=== PATIENT | female | born 1955 | race Caucasian/White ===

== ENCOUNTER 2017-05-29 06:03 | Day surgery (SDC) | payer MEDICAID ==
[~2017-05-29] VITALS: Ht 157.5 cm; Wt 95.7 kg
[~2017-05-29 06:03] MED LIST: ATOR40TA70 PO; GLIP10TA10 PO; LISI-604 PO; METF10002 PO; METH-24 PO; OMEP20TA80 PO; PIOG15TA6 PO; SODIUM CHLORIDE 0.9% 1,000 ML IV SCH
[2017-05-29 07:34] LABS: UCG SCREEN NEGATIVE
[2017-05-29] MEDS ORDERED: IBUP-1509 PO (07:55)
[2017-05-29] MEDS ORDERED: LIDOCAINE HCL 1% 20ML VIAL (Pyxis) INJ ONE (08:21)
[2017-05-29] MEDS ORDERED: PROPOFOL 200MG/20ML VIAL IV ONE (08:21)
[2017-05-29] MEDS ORDERED: ONDANSETRON HCL 4MG/2ML VIAL IV PRN (09:00)
[2017-05-29] MEDS: HYDROMORPHONE HCL/PF 2MG/ML CPJ IV PRN ×2 (10:12→16:11)
[2017-05-29 16:11] VITALS: BP 130/59
== END 2017-05-29 11:15 | disposition home or self-care (01) ==
LOC: OR 06:03
PROVIDERS: ATTEND Obstetrics & Gynecology
DX: N95.0 Postmenopausal bleeding (principal); E11.9 Type 2 diabetes mellitus without complications; I10 Essential (primary) hypertension; N88.2 Stricture and stenosis of cervix uteri; E66.01 Morbid (severe) obesity due to excess calories; E78.5 Hyperlipidemia, unspecified
CPT/HCPCS: 58120; 81025; 82962; 88305; 93005; J1170; J3490; J7030; J2704

== ENCOUNTER 2018-09-17 06:04 | Day surgery (SDC) | payer MEDICAID ==
[~2018-09-17] VITALS: Ht 157.5 cm; Wt 95.7 kg
[~2018-09-17 06:04] MED LIST changes: +IBUP-2028 PO; +METF-416 PO; -METF10002 PO; -METH-24 PO; +METH-375 PO; +OMEP20TA2 PO; -OMEP20TA80 PO; -SODIUM CHLORIDE 0.9% 1,000 ML IV SCH
[2018-09-17] MEDS ORDERED: FENTANYL CITRATE/PF 50MCG/ML 2ML VIAL ONE (09:27)
[2018-09-17] MEDS ORDERED: MIDAZOLAM HCL 2 MG/2 ML VIAL ONE (09:27)
[2018-09-17] MEDS ORDERED: PROPOFOL 200MG/20ML VIAL IV ONE (09:28)
[2018-09-17] MEDS ORDERED: LIDOCAINE HCL 1% 20ML VIAL (Pyxis) INJ ONE (09:28)
[2018-09-17] MEDS ORDERED: ONDANSETRON HCL 4MG/2ML INJ ONE (09:28)
[2018-09-17] MEDS ORDERED: METOCLOPRAMIDE HCL 10MG/2ML VIAL ONE (09:28)
[2018-09-17] MEDS ORDERED: SILVER NITRATE APPLICATOR STICK TOP SCH (09:45)
[2018-09-17] MEDS ORDERED: CEFAZOLIN SODIUM 1000MG/VIAL ONE (10:02)
[2018-09-17] MEDS ORDERED: ONDANSETRON HCL 4MG/2ML INJ IV PRN (10:15)
== END 2018-09-17 11:48 | disposition home or self-care (01) ==
LOC: OR 06:04
PROVIDERS: ATTEND Obstetrics & Gynecology
DX: N72 Inflammatory disease of cervix uteri (principal); I10 Essential (primary) hypertension; E78.5 Hyperlipidemia, unspecified; E66.01 Morbid (severe) obesity due to excess calories; E11.9 Type 2 diabetes mellitus without complications; K21.9 Gastro-esophageal reflux disease without esophagitis; F32.9 Major depressive disorder, single episode, unspecified; Z79.899 Other long term (current) drug therapy; Z98.890 Other specified postprocedural states
CPT/HCPCS: 58120; 82962; 88305; 93005; J0690; J2250; J2405; J2765; J3010; J3490; J2704